=== PATIENT | female | born 1980 | race Caucasian/White ===

== ENCOUNTER 2017-05-14 14:50 | Outpatient (CLI) | payer BC | END 2017-05-14 14:51 | disposition home or self-care (01) | LOC: LAB.WCP 14:50 | PROVIDERS: ATTEND Physician Assistant Medical | DX: B37.3 Candidiasis of vulva and vagina (principal) | CPT/HCPCS: 87480; 87510; 87660 ==

== ENCOUNTER 2017-08-05 08:00 | Outpatient (CLI) | payer BC | END 2017-08-05 08:01 | disposition home or self-care (01) | LOC: LAB.R 08:00 | PROVIDERS: ATTEND Nurse Practitioner Obstetrics & Gynecology | DX: B37.9 Candidiasis, unspecified (principal) ==

== ENCOUNTER 2017-09-22 08:00 | Outpatient (CLI) | payer BC | END 2017-09-22 23:59 | disposition home or self-care (01) | LOC: LAB.R 08:00 | PROVIDERS: ATTEND Nurse Practitioner Obstetrics & Gynecology | DX: B37.3 Candidiasis of vulva and vagina (principal); N76.0 Acute vaginitis | CPT/HCPCS: 81599; 87102; 87480; 87510; 87660 ==

== ENCOUNTER 2018-07-09 15:02 | Outpatient (CLI) | payer BC ==
--- NOTE | 2018-07-10 11:40 | Ultrasound Report ---
Reason: DYSFUNCTIONAL UTERINE BLEEDING Procedure Date: 07/09/2018 Accession Number: [id number] / [id number] Procedure: US - Pelvic w/Transvaginal CPT Code: FULL RESULT: EXAM: PELVIC ULTRASOUND EXAM DATE: 07/09/2018 03:36 PM. CLINICAL HISTORY: DYSFUNCTIONAL UTERINE BLEEDING. COMPARISON: None. TECHNIQUE: Realtime transabdominal pelvic scan performed to identify the uterus and adnexa and as an overview of other pelvic structures, followed by transvaginal scan to provide greater detail of the uterus and adnexa, with static image documentation. FINDINGS: Uterus: 9 x 4.6 x 5.9 cm, volume 128 cc. Anteverted position. Normal overall size and echotexture. Masses: None. Endometrium: 9.1 mm. No endometrial mass or polyp. Cervix: Unremarkable. Right Ovary: 3.8 x 2.1 x 2.8 cm, volume 11.7 cc. Normal echotexture and blood flow. Left Ovary: 3.2 x 1.6 x 2.2 cm, volume 5.9 cc. Normal echotexture and blood flow. Free Fluid: None. Other: Small volume ascites. IMPRESSION: 1. Both ovaries and adnexa are normal. 2. Normal endometrium. No mass or polyp. 3. No uterine fibroids. [facility]
== END 2018-07-09 15:03 | disposition home or self-care (01) ==
LOC: DI 15:02
PROVIDERS: ATTEND Family Medicine
DX: N93.8 Other specified abnormal uterine and vaginal bleeding (principal)
CPT/HCPCS: 76830; 76856

== ENCOUNTER 2018-11-28 11:35 | Outpatient (CLI) | payer BC ==
[2018-11-28 12:12] LABS: MEAN CORPUSCULAR HEMOGLOBIN 16.7 pg (27.0-31.0); MEAN CORPUSCULAR HGB CONC 28.1 g/dL (32.0-36.0); MEAN CORPUSCULAR VOLUME 59.2 fL (81.0-99.0); MEAN PLATELET VOLUME 8.4 fL (7.9-10.8); RED BLOOD COUNT 4.23 10^6/uL (4.20-5.40); RED CELL DISTRIBUTION WIDTH 21.2 % (12.0-15.0); WHITE BLOOD COUNT 6.6 x10^3/uL (4.8-10.8)
[2018-11-28 12:17] LABS: INR 1.1 (0.8-1.2)
[2018-11-28 12:41] LABS: FERRITIN 2.2 ng/mL (11.0-306.8)
[2018-11-28 12:44] LABS: FOLATE 10.97 ng/mL (5.90 - >24.8)
[2018-11-28 14:35] LABS: % IRON SATURATION 1 % (20-50); IRON 6 ug/dL (28-170); TOTAL IRON BINDING CAPACITY 528 ug/dL (250-450); TRANSFERRIN 377 mg/dL (192-382)
== END 2018-11-28 11:36 | disposition home or self-care (01) ==
LOC: LAB 11:35
PROVIDERS: ATTEND Obstetrics & Gynecology
DX: D50.9 Iron deficiency anemia, unspecified (principal); N92.0 Excessive and frequent menstruation with regular cycle; R23.8 Other skin changes; Z85.41 Personal history of malignant neoplasm of cervix uteri
CPT/HCPCS: 36415; 82607; 82728; 82746; 83540; 84466; 85027; 85610; 85730

== ENCOUNTER 2018-12-14 11:48 | Outpatient (CLI) | payer BC ==
[2018-12-14 12:19] LABS: MEAN CORPUSCULAR HEMOGLOBIN 18.4 pg (27.0-31.0); MEAN CORPUSCULAR HGB CONC 28.3 g/dL (32.0-36.0); MEAN CORPUSCULAR VOLUME 65.2 fL (81.0-99.0); MEAN PLATELET VOLUME 8.6 fL (7.9-10.8); RED BLOOD COUNT 4.89 10^6/uL (4.20-5.40); RED CELL DISTRIBUTION WIDTH 26.3 % (12.0-15.0); WHITE BLOOD COUNT 4.6 x10^3/uL (4.8-10.8)
== END 2018-12-14 11:49 | disposition home or self-care (01) ==
LOC: LAB 11:48
PROVIDERS: ATTEND Obstetrics & Gynecology
DX: D50.9 Iron deficiency anemia, unspecified (principal)
CPT/HCPCS: 36415; 85027

== ENCOUNTER 2019-06-27 08:00 | Outpatient (CLI) | payer BC ==
[2019-06-27 19:29] LABS: CANDIDA GROUP DNA POSITIVE (NEGATIVE); CANDIDA KRUSEI DNA NEGATIVE (NEGATIVE); TRICHOMONAS VAGINALIS DNA NEGATIVE (NEGATIVE)
[2019-06-27 23:45] LABS: TRICHOMONAS VAGINALIS DNA UNRESOLVED (NEGATIVE)
== END 2019-06-27 23:59 | disposition home or self-care (01) ==
LOC: LAB.R 08:00
PROVIDERS: ATTEND Obstetrics & Gynecology
DX: N89.8 Other specified noninflammatory disorders of vagina (principal)
CPT/HCPCS: 87491; 87591; 87661; 87801

== ENCOUNTER 2020-03-26 08:00 | Outpatient (CLI) | payer BC ==
[2020-03-26 19:40] LABS: CANDIDA GROUP DNA POSITIVE (NEGATIVE); CANDIDA KRUSEI DNA NEGATIVE (NEGATIVE); TRICHOMONAS VAGINALIS DNA NEGATIVE (NEGATIVE)
== END 2020-03-26 23:59 | disposition home or self-care (01) ==
LOC: LAB.R 08:00
PROVIDERS: ATTEND Advanced Practice Midwife
DX: N89.8 Other specified noninflammatory disorders of vagina (principal)
CPT/HCPCS: 87661; 87801

== ENCOUNTER 2023-01-05 09:00 | Outpatient (CLI) | payer OTHER ==
[2023-01-05 11:45] LABS: BASOPHILS # (AUTO) 0.1 10^3/uL (0.0-0.1); BASOPHILS % (AUTO) 1.5 %; EOSINOPHILS % (AUTO) 0.6 %; HCT - HEMATOCRIT 31.8 % (37.0-47.0); HGB - HEMOGLOBIN 8.6 g/dL (12.0-16.0); LYMPHOCYTES # (AUTO) 1.2 10^3/uL (1.5-3.5); LYMPHOCYTES % (AUTO) 18.3 %; MEAN CORPUSCULAR HEMOGLOBIN 18.7 pg (27.0-31.0); MONOCYTES # (AUTO) 0.5 10^3/uL (0.0-1.0); MONOCYTES % (AUTO) 8.2 %; NEUTROPHILS # (AUTO) 4.6 10^3/uL (1.5-6.6); NEUTROPHILS % (AUTO) 71.1 %; PLT - PLATELET COUNT 545 10^3/uL (130-450); RED BLOOD COUNT 4.61 10^6/uL (4.20-5.40); RED CELL DISTRIBUTION WIDTH 20.6 % (12.0-15.0); WHITE BLOOD COUNT 6.5 x10^3/uL (4.8-10.8)
[2023-01-05 11:51] LABS: BILIRUBIN,URINE NEGATIVE (NEGATIVE); GLUCOSE, URINE (UA) NEGATIVE (NEGATIVE); KETONES,URINE (UA) NEGATIVE (NEGATIVE); LEUKOCYTE ESTERASE, URINE SMALL (NEGATIVE); NITRITE,URINE NEGATIVE (NEGATIVE); OCCULT BLOOD,URINE NEGATIVE (NEGATIVE); PH,URINE 5.5 PH (5.0-7.5); PROTEIN,URINE NEGATIVE (NEGATIVE); UROBILINOGEN,URINE 0.2 (NORMAL) E.U./dL (NORMAL)
[2023-01-05 11:53] LABS: SLIDE REVIEW? Indicated
[2023-01-05 12:00] LABS: AMORPHOUS SEDIMENT,UR Marked /LPF; BACTERIA,URINE Few /HPF (None Seen); CLARITY,URINE CLOUDY (CLEAR); RBC,URINE 0-5 /HPF (0-5); SQUAMOUS EPITHELIAL CELL,UR RARE Squamous (<= Few); WBC,URINE 0-3 /HPF (0-5)
[2023-01-05 12:14] LABS: PLATELET ESTIMATE, MANUAL INCREASED (>450,000) (NORMAL); PLATELET MORPHOLOGY NORMAL APPEARANCE (NORMAL)
[2023-01-05 12:15] LABS: WBC MORPHOLOGY (MULTIPLE) NORMAL APPEARANCE (NORMAL)
[2023-01-05 12:36] LABS: THYROID STIMULATING HORMONE 1.4 uIU/mL (0.34-5.60)
[2023-01-05 12:41] LABS: FERRITIN 2.2 ng/mL (11.0-306.8)
[2023-01-05 12:47] LABS: ALBUMIN 4.6 g/dL (3.2-5.5); ALBUMIN/GLOBULIN RATIO 1.4 (1.0-2.2); BILIRUBIN,TOTAL 0.4 mg/dL (0.2-1.0); CALCIUM 9.3 mg/dL (8.5-10.3); CREATININE 0.6 mg/dL (0.4-1.0); POTASSIUM 3.9 mmol/L (3.5-5.0)
== END 2023-01-05 09:01 | disposition home or self-care (01) ==
LOC: LAB.N 09:00
PROVIDERS: ATTEND Physician Assistant
DX: D50.9 Iron deficiency anemia, unspecified (principal); R31.0 Gross hematuria; N92.0 Excessive and frequent menstruation with regular cycle; F41.9 Anxiety disorder, unspecified
CPT/HCPCS: 36415; 80053; 81001; 82728; 83540; 84443; 84466; 85025; 87086; 87181